=== PATIENT | female | born 1995 | race Caucasian/White ===

== ENCOUNTER 2022-03-18 16:21 | Outpatient (CLI) | payer OTHER ==
--- NOTE | 2022-03-19 08:19 | Ultrasound Report ---
PROCEDURE: OB First Trimester w/TV INDICATIONS: SUPERVISION OF OUTSIDE/PRIOR DATING DATA: Last menstrual period (LMP): December 07, 2021. LMP-based estimated date of delivery (SNOW): September 13, 2022. First dating scan (date ): March 18, 2022. Estimated date of delivery (SNOW) from first dating scan: September 15, 2022. TECHNIQUE: Real-time scanning was performed of the fetus and maternal pelvic organs, with image documentation. Endovaginal scanning was also performed to better visualize the fetus and maternal ovaries. COMPARISON: None. FINDINGS: General: A single living intrauterine gestation is present. Presentation: Breech/variable Placenta: Placental position is posterior, without previa. Amniotic fluid index: 10.2 cm, appropriate for gestational age. heart rate: 178 beats per minute. Maternal cervical canal: 4 cm long; normal length is 2.5 cm or more. biometrics: Biparietal diameter: 6.1 cm Head circumference: 9.6 cm Abdominal circumference: 8 cm Femur length: 1.2 cm Estimated gestational age from initial scan: not applicable. Composite gestational age from present scan: 14 weeks, 1 day Measurement variability for biometric dating: +/- 10 days from 12-20 weeks gestation, +/- 2 weeks fro m 20-30 weeks gestation, +/- 3 weeks for 30 weeks gestation or later. Maternal organs: Ovaries demonstrate a right corpus luteum. IMPRESSION: Single intrauterine gestation as detailed above. Reviewed by: Jaylen Das MD on 03/19/2022 8:18 AM PDT Approved by: Jaylen Das MD on 03/19/2022 8:18 AM PDT Station ID: [id number]
== END 2022-03-18 16:22 | disposition home or self-care (01) ==
LOC: DI 16:21
PROVIDERS: ATTEND Obstetrics & Gynecology
DX: Z34.02 Encounter for supervision of normal first pregnancy, second trimester (principal); Z3A.14 14 weeks gestation of pregnancy

== ENCOUNTER 2022-04-14 08:00 | Outpatient (CLI) | payer OTHER | END 2022-04-15 23:18 | disposition home or self-care (01) | LOC: LAB.N 08:00 | PROVIDERS: ATTEND Registered Nurse | DX: N30.00 Acute cystitis without hematuria (principal) | CPT/HCPCS: 87086 ==